=== PATIENT | female | born 1990 | race Asian ===

== ENCOUNTER 2019-10-21 17:20 | Outpatient (CLI) | payer OTHER ==
--- NOTE | 2019-10-22 13:19 | XRAY Report ---
Reason: iNTERNAL DERANGEMENT, LEFT KNEE Procedure Date: 10/21/2019 Accession Number: [id number] / [id number] Procedure: XR - Knee 3 View LT CPT Code: Final Report FULL RESULT: EXAM: LEFT KNEE RADIOGRAPHY EXAM DATE: 10/21/2019 05:45 PM. CLINICAL HISTORY: INTERNAL DERANGEMENT, LEFT KNEE. COMPARISON: None. TECHNIQUE: 3 views. FINDINGS: Bones: No fractures or bone lesions. Joints: Unremarkable. Soft Tissues: Unremarkable. IMPRESSION: 1. No acute osseous abnormality. Kellgren Clifford Grade 0. Kellgren and Clifford classification of osteoarthritis: Grade 0: no radiographic features of osteoarthritis are present Grade 1: doubtful joint space narrowing (JSN) and possible osteophytic lipping Grade 2: definite osteophytes and possible JSN on anteroposterior weight-bearing radiograph Grade 3: multiple osteophytes, definite JSN, sclerosis, possible bony deformity Grade 4: large osteophytes, marked JSN, severe sclerosis and definite bony deformity RADIA
== END 2019-10-21 17:21 | disposition home or self-care (01) ==
LOC: DI 17:20
PROVIDERS: ATTEND Family Medicine
DX: M23.92 Unspecified internal derangement of left knee (principal)